=== PATIENT | female | born 1995 | race Caucasian/White ===

== ENCOUNTER 2022-02-01 16:29 | Emergency (ER) | payer OTHER, MEDICAID, SELFPAY ==
[2022-02-01 16:55] VITALS: BP 148/74; PULSE 88; RESP 16; TEMP 36.9; O2SAT 98; BMI 26.9
--- NOTE | 2022-02-01 19:51 | ED.ABDPAIN ---
HPI - Abdominal Pain General Chief Complaint: Abdominal Pain Stated Complaint: Can't go to restroom, pain arms/legs/body 2weeks Time Seen by Provider: 02/01/22 17:27 Source: patient Mode of arrival: Ambulatory History of Present Illness HPI narrative: Patient is a 26-year-old male to female transitioning on hormone replacement, Angel jordna, anxiety presents today with multiple complaints. She states that she is having ongoing abdominal discomfort. She has not had a bowel movement in a while. She can still tell when she has to urinate. She denies any flank pain. No nausea or vomiting. No fevers or chills. She has had intermittent chest discomfort as well. In fact she is at the [facility] in 01/21/2022 where she was worked up blood work EKG she had some left-sided weakness as well history is workup for a TIA. EKG blood work head CT were negative. He continues to have this chest discomfort today she has no shortness of breath. Weakness seems to have resolved. According to you do have records she had heart rates in the 170s she has a normal heart rate and blood pressure here. Related Data Allergies Allergy/AdvReac Type Severity Reaction Status Date / Time methocarbamol Allergy Verified 02/01/22 17:03 Review of Systems Review of Systems Narrative: GENERAL: Denies chills, fatigue, malaise, fever, sweats, travel HEENT: Denies sinus pain, ear pain, sore throat, difficulty swallowing, neck pain RESPIRATORY: Denies dyspnea, cough, wheezing, hemoptysis, sputum. CARDIOVASCULAR: Denies chest pain, palpitations, orthopnea, edema GASTROINTESTINAL: See HPI : Denies dysuria, frequency, incontinence, hematuria, urinary retention, flank pain. MUSCULOSKELETAL: Denies weakness, joint pain, or bony pain SKIN: No rash, no erythema, no pruritus NEUROLOGIC: Denies weakness, dizziness, headache, numbness, change in speech, confusion PSYCHIATRIC: No concerning psychosocial issues. 12 point review of systems is negative except for those stated above and HPI Patient History Social History Smoking Status: Current every day smoker Smoking Status: Current every day smoker tobacco type: vaping Substance Use Type: does not use Exam Initial Vital Signs Initial Vital Signs: Vital Signs Temperature 98.4 F 02/01/22 16:55 Pulse Rate 88 02/01/22 16:55 Respiratory Rate 16 02/01/22 16:55 Blood Pressure 148/74 H 02/01/22 16:55 Pulse Oximetry 98 02/01/22 16:55 GENERAL: Well-appearing, well-nourished and in no acute distress. HEENT: Head atraumatic,EOMI, pupils reactive, face symmetric, moist mucous membranes CARDIOVASCULAR: Regular rate and rhythm without murmurs, rubs or gallops. RESPIRATORY: Breath sounds equal bilaterally, no wheezes rales or rhonchi. ABDOMEN: Soft, mild diffuse abdominal discomfort no guarding rebound : No CVA tenderness EXTREMITIES: Normal range of motion, no clubbing or edema. Neurovascularly intact NEUROLOGICAL: Alert and oriented x4.Normal gait and speech. Moving all extremities SKIN: Warm, dry, no laceration, no petechiae, no rashes or lesions. Course Orders Ordered: ED Orders 02/01/22 19:52 CT abdomen pelvis w con Stat EKG-12 Lead Stat 02/01/22 20:05 Complete Blood Count AUTO DIFF Stat Comprehensive Metabolic Panel Stat D Dimer Stat Lipase Stat Troponin & CK Cardiac Panel Stat Vital Signs Vital signs: Vital Signs - 8 hr 02/01/22 21:35 Pulse Rate 87 Respiratory Rate 18 Blood Pressure 124/70 Pulse Oximetry 99 MDM - Abdominal Pain Lab Data Result diagrams: 02/01/22 20:05 02/01/22 20:05 Labs: Lab Results 02/01/22 02/01/22 02/01/22 Range/Units 20:05 20:05 20:05 WBC 10.4 (4.5-11.0) X10^3/uL RBC 4.74 (4.0-5.2) X10^6/uL Hgb 14.9 (12.0-16.0) g/dL Hct 43.6 (36-46) % MCV 91.9 (80-100) fL MCH 31.3 (26-34) PG MCHC 34.1 (30-36) % RDW 12.9 (11.6-14.8) % Plt Count 289 (150-400) X10^3/uL Neut % (Auto) 68.1 (50-75) % Lymph % (Auto) 25.3 (25-40) % [place] % (Auto) 5.1 (3-14) % Eos % (Auto) 0.7 L (2-4) % Baso % (Auto) 0.8 (0-2) % Neut # (Auto) 7100 H (8694-1474) /uL Lymph # (Auto) 2600 (0519-3316) /uL [place] # (Auto) 500 (0-900) /uL Eos # (Auto) 100 (0-450) /uL Baso # (Auto) 100 (0-100) /uL D-Dimer < 200 (<230) ng/mL Sodium 144 (137-145) mmol/L Potassium 4.0 (3.4-5.1) mmol/L Chloride 105 (98-107) mmol/L Carbon Dioxide 27 (22-32) mmol/L BUN 15 (7-17) mg/dL Creatinine 0.92 (0.52-1.04) mg/dL Estimated GFR > 60 (>60) mL/min BUN/Creatinine Ratio 16.3 (6-22) Glucose 102 H (70-100) mg/dL Calcium 9.3 (8.4-10.2) mg/dL Total Bilirubin 0.5 (0.2-1.3) mg/dL AST 24 (14-36) IU/L ALT 20 (<35) IU/L Alkaline Phosphatase 59 (38-126) U/L Total Creatine Kinase (30-135) U/L CK-MB (CK-2) CK-MB (CK-2) Rel Index Troponin I (0.01-0.034) ng/mL Total Protein 8.6 H (6.3-8.2) g/dL Albumin 4.9 (3.5-5.0) g/dL Globulin 3.7 (1.7-4.1) g/dL Albumin/Globulin Ratio 1.3 (1.0-2.8) Lipase 66 (23-300) U/L 02/01/22 Range/Units 20:05 WBC (4.5-11.0) X10^3/uL RBC (4.0-5.2) X10^6/uL Hgb (12.0-16.0) g/dL Hct (36-46) % MCV (80-100) fL MCH (26-34) PG MCHC (30-36) % RDW (11.6-14.8) % Plt Count (150-400) X10^3/uL Neut % (Auto) (50-75) % Lymph % (Auto) (25-40) % [place] % (Auto) (3-14) % Eos % (Auto) (2-4) % Baso % (Auto) (0-2) % Neut # (Auto) (8430-4763) /uL Lymph # (Auto) (2648-8892) /uL [place] # (Auto) (0-900) /uL Eos # (Auto) (0-450) /uL Baso # (Auto) (0-100) /uL D-Dimer (<230) ng/mL Sodium (137-145) mmol/L Potassium (3.4-5.1) mmol/L Chloride (98-107) mmol/L Carbon Dioxide (22-32) mmol/L BUN (7-17) mg/dL Creatinine (0.52-1.04) mg/dL Estimated GFR (>60) mL/min BUN/Creatinine Ratio (6-22) Glucose (70-100) mg/dL Calcium (8.4-10.2) mg/dL Total Bilirubin (0.2-1.3) mg/dL AST (14-36) IU/L ALT (<35) IU/L Alkaline Phosphatase (38-126) U/L Total Creatine Kinase 37 (30-135) U/L CK-MB (CK-2) TNP CK-MB (CK-2) Rel Index TNP Troponin I < 0.012 (0.01-0.034) ng/mL Total Protein (6.3-8.2) g/dL Albumin (3.5-5.0) g/dL Globulin (1.7-4.1) g/dL Albumin/Globulin Ratio (1.0-2.8) Lipase (23-300) U/L Imaging Data CT scan - abdomen/pelvis: Radiologist's Impression: tient: Michelle Kolb MR#: [id number] : 1995 Acct:[id number] Age/Sex: 26 / F Date of Service: 02/01/22 Loc: ED Accession Number: [id number] ?? Procedure: CT abdomen pelvis w con Ordering Provider: Syeda Carrillo D.O. PROCEDURE:? CT ABDOMEN PELVIS W CON ? INDICATIONS:? ab pain all over ? TECHNIQUE:? After the administration of intravenous contrast, axial sections acquired from the lung bases to the pubic symphysis.? Coronal and sagittal reformats were performed.? For radiation dose reduction, the following was used:? automated exposure control, adjustment of mA and/or kV according to patient size.? ? COMPARISON:? None. ? FINDINGS:? Image quality:? Excellent.? ? Lung bases:? Unremarkable. Heart:? No significant findings. ? ABDOMEN: Liver:? No masses Gallbladder:? Normal wall thickness. Biliary ducts:? Nondilated. Pancreas:? Normal. Spleen:? Normal size. Adrenal Glands:? No nodules. Kidneys and Ureters:? Normal enhancement.? No hydronephrosis or hydroureter.? No calcifications. ? Stomach and Bowel:? Stomach, small bowel loops, and colon are unremarkable.? Normal appendix. Peritoneum:? No abnormal intraperitoneal fluid.? No free air.? ? Ventral Wall: ? No hernias.? Abdominal Nodes:? Small mesenteric lymph nodes present. Vessels:? Aorta and inferior vena cava are normal in size.? ? PELVIS: Pelvic Organs:? Both testicles in the inguinal regions.? Normal size prostate gland. Bladder:? Normal wall thickness. Pelvic Nodes: No enlarged lymph nodes.? Miscellaneous: No hernias are seen. ? ? ? Bones:? Unremarkable.? IMPRESSION:? ? 1. No CT evidence of acute process.? ? ? Dictated by: Kyra Meng M.D. on 02/01/2022 at 20:49 ? ? ECG Data Interpretation: Sinus rhythm rate 81 MA interval 146 QRS [address] changes no T-wave inversions MDM Narrative Medical decision making narrative: The patient has right knee of odd complaints. She was just seen a couple weeks ago for chest pain palpitations and tachycardia. She continues to have these type symptoms. I added a D-dimer today which fortunately is negative. Abdominal CT is negative blood work is overall reassuring. This time I have no explanation for bag abdominal pain. I have explained this to her recommend outpatient follow-up. Discharge Plan Departure Patient Disposition: Home Clinical Impression: Abdominal pain Instructions: DI for Abdominal Pain-Adult Activity Restrictions/Additional Instructions: *You have been diagnosed with abdominal pain *What to do: At this time blood work and CT scan do not show any abnormality. I am sorry that you are still uncomfortable. We checked your heart today as well which is also okay. *Continue to take medications as directed *Follow up with your primary care provider in 2-3 days or call [phone] *Return to ER if you should have increasing pain chest pain passing out vomiting fever or any new, worsening or concerning symptoms Referrals: Jose Moore MD [Primary Care Provider] -
--- NOTE | 2022-02-01 19:52 | DI.CT.S_ITS ---
PROCEDURE: CT ABDOMEN PELVIS W CON INDICATIONS: ab pain all over TECHNIQUE: After the administration of intravenous contrast, axial sections acquired from the lung bases to the pubic symphysis. Coronal and sagittal reformats were performed. For radiation dose reduction, the following was used: automated exposure control, adjustment of mA and/or kV according to patient size. COMPARISON: None. FINDINGS: Image quality: Excellent. Lung bases: Unremarkable. Heart: No significant findings. ABDOMEN: Liver: No masses Gallbladder: Normal wall thickness. Biliary ducts: Nondilated. Pancreas: Normal. Spleen: Normal size. Adrenal Glands: No nodules. Kidneys and Ureters: Normal enhancement. No hydronephrosis or hydroureter. No calcifications. Stomach and Bowel: Stomach, small bowel loops, and colon are unremarkable. Normal appendix. Peritoneum: No abnormal intraperitoneal fluid. No free air. Ventral Wall: No hernias. Abdominal Nodes: Small mesenteric lymph nodes present. Vessels: Aorta and inferior vena cava are normal in size. PELVIS: Pelvic Organs: Both testicles in the inguinal regions. Normal size prostate gland. Bladder: Normal wall thickness. Pelvic Nodes: No enlarged lymph nodes. Miscellaneous: No hernias are seen. Bones: Unremarkable. IMPRESSION: 1. No CT evidence of acute process. Dictated by: Kyra Meng M.D. on 02/01/2022 at 20:49 Approved by: Kyra Meng M.D. on 02/01/2022 at 20:54
[2022-02-01 20:23] LABS: Add Manual Diff / Slide Review NO; Basophils Absolute Auto 100 /uL (0-100); Basophils Percent Auto 0.8 % (0-2); Eosinophils Absolute Auto 100 /uL (0-450); Eosinophils Percent Auto 0.7 % (2-4); Hematocrit 43.6 % (36-46); Hemoglobin 14.9 g/dL (12.0-16.0); Lymphocytes Absolute Auto 2600 /uL (1100-4500); Lymphocytes Percent Auto 25.3 % (25-40); Mean Corpuscular HGB Conc 34.1 % (30-36); Mean Corpuscular Hemoglobin 31.3 PG (26-34); Mean Corpuscular Volume 91.9 fL (80-100); Monocytes Absolute Auto 500 /uL (0-900); Monocytes Percent Auto 5.1 % (3-14); Neutrophils Absolute Auto 7100 /uL (1500-7000); Neutrophils Percent Auto 68.1 % (50-75); Platelet Count 289 X10^3/uL (150-400); Red Blood Cell Count 4.74 X10^6/uL (4.0-5.2); Red Cell Distribution Width 12.9 % (11.6-14.8); White Blood Cell Count 10.4 X10^3/uL (4.5-11.0)
[2022-02-01 20:33] LABS: Creatine Kinase 37 U/L (30-135)
[2022-02-01 20:34] LABS: Alanine Aminotransferase 20 IU/L (<35); Albumin 4.9 g/dL (3.5-5.0); Albumin Globulin Ratio 1.3 (1.0-2.8); Alkaline Phosphatase 59 U/L (38-126); Aspartate Aminotransferase 24 IU/L (14-36); BUN Creatinine Ratio 16.3 (6-22); Bilirubin Total 0.5 mg/dL (0.2-1.3); Blood Urea Nitrogen 15 mg/dL (7-17); Calcium 9.3 mg/dL (8.4-10.2); Carbon Dioxide 27 mmol/L (22-32); Chloride 105 mmol/L (98-107); Estimated Glomerular Filt Rate > 60 mL/min (>60); Globulin 3.7 g/dL (1.7-4.1); Glucose 102 mg/dL (70-100); HEMOLYSIS < 15 (0-50); Lipase 66 U/L (23-300); Sodium 144 mmol/L (137-145); Total Protein 8.6 g/dL (6.3-8.2)
[2022-02-01 20:42] LABS: D Dimer < 200 ng/mL (<230)
[2022-02-01 20:47] LABS: Troponin I < 0.012 ng/mL (0.01-0.034)
[2022-02-01 21:35] VITALS: BP 124/70; PULSE 87; RESP 18; O2SAT 99
== END 2022-02-01 22:25 | disposition home or self-care (01) ==
PROVIDERS: Emergency Provider Emergency Medicine; PCP Internal Medicine
DX: R10.9 Unspecified abdominal pain (principal); R07.89 Other chest pain
CPT/HCPCS: 74177; 80053; 82550; 83690; 84484; 85025; 85379; 93005; 99283; 99284; Q9967

== ENCOUNTER 2022-02-24 12:48 | Emergency (ER) | payer OTHER, MEDICAID, SELFPAY ==
[2022-02-24 12:55] VITALS: BP 135/78; PULSE 97; RESP 16; TEMP 36.6; O2SAT 98; BMI 27.1
--- NOTE | 2022-02-24 12:58 | DI.RAD.S_ITS ---
PROCEDURE: XR CHEST 2V INDICATIONS: pain with deep breath, SOB. Hx asthma TECHNIQUE: 2 views of the chest were acquired. COMPARISON: None. FINDINGS: Surgical changes and devices: None. Lungs and pleura: Lungs are clear. No pleural effusions or pneumothorax. Mediastinum: Mediastinal contours are normal. Heart size is normal. Bones and chest wall: No suspicious bony abnormalities. Soft tissues appear unremarkable. IMPRESSION: No acute cardiopulmonary findings. Dictated by: Jihan Shirley M.D. on 02/24/2022 at 13:24 Approved by: Jihan Shirley M.D. on 02/24/2022 at 13:25
--- NOTE | 2022-02-24 13:26 | ED_ITS ---
HPI - SOB/Dyspnea <Clive Iraheta PA-C - Last Filed: 02/24/22 17:14> General Chief Complaint: Upper Respiratory Symptoms Stated Complaint: trouble breathing, pain on rt side, behind rt lung Time Seen by Provider: 02/24/22 12:50 Mode of arrival: Ambulatory History of Present Illness HPI Narrative: This is a 26-year-old female presents to the emergency department due to 3 days of shortness of breath. She has used her albuterol inhaler for her chronic asthma without significant relief. She also reports pain in the right back, ?underneath the scapula?. Denies any trauma to the area. Denies any fevers, nausea, vomiting, diarrhea, URI symptoms, or any other concerning signs or symptoms. Denies any chest pain. Related Data Previous Rx's Medication Instructions Recorded prednisone 20 mg tablet 20 mg PO BID 7 Days #14 tab 02/24/22 Allergies Allergy/AdvReac Type Severity Reaction Status Date / Time methocarbamol Allergy Verified 02/24/22 12:57 Review of Systems <MIESHA Milan Last Filed: 02/24/22 17:14> Review of Systems Narrative: Positive for shortness of breath, right back pain Negative for fevers, nausea, vomiting, diarrhea, chest pain, URI symptoms Patient History <MIESHA Milan Last Filed: 02/24/22 17:14> Social History Smoking Status: Current every day smoker Smoking Status: Current every day smoker tobacco type: vaping Substance Use Type: does not use Exam <MIESHA Milan Last Filed: 02/24/22 17:14> Narrative Exam Narrative: GENERAL: Well-developed patient, in mild distress. HEAD: Atraumatic. Normocephalic. EYES: Pupils equal round and reactive. Extraocular motions intact. No scleral icterus. No injection or drainage. ENT: Nose without bleeding, purulent drainage. Throat without erythema, tonsillar hypertrophy or exudate. Airway patent. NECK: Trachea midline. Non tender CARDIOVASCULAR: Regular rate and rhythm without murmurs, gallops, or rubs. RESPIRATORY: Clear to auscultation. Breath sounds equal bilaterally. No wheezes, rales, or rhonchi. GASTROINTESTINAL: Abdomen soft, non-tender, nondistended. EXTREMITIES: No edema or joint tenderness. BACK: Mild tenderness palpation to the right scapular area NEURO: AOx3. SKIN: No rash or erythema of visible areas Initial Vital Signs Initial Vital Signs: Vital Signs Temperature 98 F 02/24/22 12:55 Pulse Rate 97 H 02/24/22 12:55 Respiratory Rate 16 02/24/22 12:55 Blood Pressure 135/78 02/24/22 12:55 Pulse Oximetry 98 02/24/22 12:55 <DO Carmela Ware Last Filed: 02/25/22 08:47> Initial Vital Signs Initial Vital Signs: Vital Signs Temperature 98 F 02/24/22 12:55 Pulse Rate 97 H 02/24/22 12:55 Respiratory Rate 16 02/24/22 12:55 Blood Pressure 135/78 02/24/22 12:55 Pulse Oximetry 98 02/24/22 12:55 Course <Clive Iraheta PA-C - Last Filed: 02/24/22 17:14> Orders Ordered: ED Orders 02/24/22 12:58 XR chest 2V Stat EKG-12 Lead Stat 02/24/22 13:07 D Dimer Stat 02/24/22 14:59 Complete Blood Count AUTO DIFF Stat Comprehensive Metabolic Panel Stat Troponin I Stat Vital Signs Vital signs: Vital Signs - 8 hr 02/24/22 12:55 Temperature 98 F Pulse Rate 97 H Respiratory Rate 16 Blood Pressure 135/78 Pulse Oximetry 98 <DO Carmela Ware Last Filed: 02/25/22 08:47> Orders Ordered: ED Orders 02/24/22 12:58 XR chest 2V Stat EKG-12 Lead Stat 02/24/22 13:07 D Dimer Stat 02/24/22 14:59 Complete Blood Count AUTO DIFF Stat Comprehensive Metabolic Panel Stat Troponin I Stat Vital Signs Vital signs: Vital Signs - 8 hr 02/24/22 12:55 Temperature 98 F Pulse Rate 97 H Respiratory Rate 16 Blood Pressure 135/78 Pulse Oximetry 98 MDM - SOB/Dyspnea <MIESHA Milan Last Filed: 02/24/22 17:14> Lab Data Result diagrams: 02/24/22 14:59 02/24/22 14:59 Labs: Lab Results 02/24/22 02/24/22 02/24/22 Range/Units 13:07 14:59 14:59 WBC 6.9 (4.5-11.0) X10^3/uL RBC 4.65 (4.0-5.2) X10^6/uL Hgb 14.8 (12.0-16.0) g/dL Hct 42.1 (36-46) % MCV 90.7 (80-100) fL MCH 31.8 (26-34) PG MCHC 35.1 (30-36) % RDW 12.9 (11.6-14.8) % Plt Count 217 (150-400) X10^3/uL Neut % (Auto) 63.5 (50-75) % Lymph % (Auto) 29.0 (25-40) % [place] % (Auto) 5.5 (3-14) % Eos % (Auto) 1.1 L (2-4) % Baso % (Auto) 0.9 (0-2) % Neut # (Auto) 4400 (4396-1190) /uL Lymph # (Auto) 2000 (9072-2676) /uL [place] # (Auto) 400 (0-900) /uL Eos # (Auto) 100 (0-450) /uL Baso # (Auto) 100 (0-100) /uL D-Dimer < 200 (<230) ng/mL Sodium 141 (137-145) mmol/L Potassium 3.8 (3.4-5.1) mmol/L Chloride 105 (98-107) mmol/L Carbon Dioxide 26 (22-32) mmol/L BUN 14 (7-17) mg/dL Creatinine 0.83 (0.52-1.04) mg/dL Estimated GFR > 60 (>60) mL/min BUN/Creatinine Ratio 16.9 (6-22) Glucose 95 (70-100) mg/dL Calcium 8.8 (8.4-10.2) mg/dL Total Bilirubin 0.4 (0.2-1.3) mg/dL AST 31 (14-36) IU/L ALT 55 H (<35) IU/L Alkaline Phosphatase 48 (38-126) U/L Troponin I (0.01-0.034) ng/mL Total Protein 8.0 (6.3-8.2) g/dL Albumin 4.7 (3.5-5.0) g/dL Globulin 3.3 (1.7-4.1) g/dL Albumin/Globulin Ratio 1.4 (1.0-2.8) // Range/Units 14:59 WBC (4.5-11.0) X10^3/uL RBC (4.0-5.2) X10^6/uL Hgb (12.0-16.0) g/dL Hct (36-46) % MCV (80-100) fL MCH (26-34) PG MCHC (30-36) % RDW (11.6-14.8) % Plt Count (150-400) X10^3/uL Neut % (Auto) (50-75) % Lymph % (Auto) (25-40) % [place] % (Auto) (3-14) % Eos % (Auto) (2-4) % Baso % (Auto) (0-2) % Neut # (Auto) (0559-7295) /uL Lymph # (Auto) (5173-2007) /uL [place] # (Auto) (0-900) /uL Eos # (Auto) (0-450) /uL Baso # (Auto) (0-100) /uL D-Dimer (<230) ng/mL Sodium (137-145) mmol/L Potassium (3.4-5.1) mmol/L Chloride (98-107) mmol/L Carbon Dioxide (22-32) mmol/L BUN (7-17) mg/dL Creatinine (0.52-1.04) mg/dL Estimated GFR (>60) mL/min BUN/Creatinine Ratio (6-22) Glucose (70-100) mg/dL Calcium (8.4-10.2) mg/dL Total Bilirubin (0.2-1.3) mg/dL AST (14-36) IU/L ALT (<35) IU/L Alkaline Phosphatase (38-126) U/L Troponin I < 0.012 (0.01-0.034) ng/mL Total Protein (6.3-8.2) g/dL Albumin (3.5-5.0) g/dL Globulin (1.7-4.1) g/dL Albumin/Globulin Ratio (1.0-2.8) Imaging Data Chest x-ray: Radiologist's Impression: [address] [address] XRay Report Signed Patient: Michelle Kolb MR#: [id number] : 1995 Acct:[id number] Age/Sex: 26 / F Date of Service: 02/24/22 Loc: ED Accession Number: [id number] ?? Procedure: XR chest 2V Ordering Provider: Syeda Carrillo D.O. PROCEDURE:? XR CHEST 2V ? INDICATIONS:? pain with deep breath, SOB. Hx asthma ? TECHNIQUE:? 2 views of the chest were acquired.? ? COMPARISON:? None. ? FINDINGS:? ? Surgical changes and devices:? None.? ? Lungs and pleura:? Lungs are clear.? No pleural effusions or pneumothorax.? ? Mediastinum:? Mediastinal contours are normal.? Heart size is normal.? ? Bones and chest wall:? No suspicious bony abnormalities.? Soft tissues appear unremarkable.? ? IMPRESSION:? No acute cardiopulmonary findings. ? ? Dictated by: Jihan Shirley M.D. on 02/24/2022 at 13:24 ? ? Approved by: Jihan Shirley M.D. on 02/24/2022 at 13:25 ? ECG Data Interpretation: EKG is normal sinus rhythm rate 78 and free of any signs of ischemia or ectopy. No ST segmental elevation or depression. No T wave inversions MDM Narrative Medical decision making narrative: 26-year-old female presents to the emergency department due to acute no shortness of breath over last 3 days. Suspect asthma exacerbation as she does report a history of asthma. Chest x-ray shows no evidence of any him pneumothorax, pneumonia, or other abnormality. EKG showed no evidence of ACS. D-dimer ordered as patient does have a history of hormone replacement therapy. D-dimer negative and low suspicion for PE at this time. CBC, CMP, troponin, all within normal limits as well. Discussed options for possible breathing treatment here in the emergency department although patient declined as she states she needs to get home to her grandmother's to give her medication. Short steroid burst will be prescribed to treat the suspected asthma exacerbation. <Syeda Carrillo DO - Last Filed: 02/25/22 08:47> Lab Data Labs: Lab Results 02/24/22 02/24/22 02/24/22 Range/Units 13:07 14:59 14:59 WBC 6.9 (4.5-11.0) X10^3/uL RBC 4.65 (4.0-5.2) X10^6/uL Hgb 14.8 (12.0-16.0) g/dL Hct 42.1 (36-46) % MCV 90.7 (80-100) fL MCH 31.8 (26-34) PG MCHC 35.1 (30-36) % RDW 12.9 (11.6-14.8) % Plt Count 217 (150-400) X10^3/uL Neut % (Auto) 63.5 (50-75) % Lymph % (Auto) 29.0 (25-40) % [place] % (Auto) 5.5 (3-14) % Eos % (Auto) 1.1 L (2-4) % Baso % (Auto) 0.9 (0-2) % Neut # (Auto) 4400 (3828-5953) /uL Lymph # (Auto) 2000 (6100-3742) /uL [place] # (Auto) 400 (0-900) /uL Eos # (Auto) 100 (0-450) /uL Baso # (Auto) 100 (0-100) /uL D-Dimer < 200 (<230) ng/mL Sodium 141 (137-145) mmol/L Potassium 3.8 (3.4-5.1) mmol/L Chloride 105 (98-107) mmol/L Carbon Dioxide 26 (22-32) mmol/L BUN 14 (7-17) mg/dL Creatinine 0.83 (0.52-1.04) mg/dL Estimated GFR > 60 (>60) mL/min BUN/Creatinine Ratio 16.9 (6-22) Glucose 95 (70-100) mg/dL Calcium 8.8 (8.4-10.2) mg/dL Total Bilirubin 0.4 (0.2-1.3) mg/dL AST 31 (14-36) IU/L ALT 55 H (<35) IU/L Alkaline Phosphatase 48 (38-126) U/L Troponin I (0.01-0.034) ng/mL Total Protein 8.0 (6.3-8.2) g/dL Albumin 4.7 (3.5-5.0) g/dL Globulin 3.3 (1.7-4.1) g/dL Albumin/Globulin Ratio 1.4 (1.0-2.8) / Range/Units 14:59 WBC (4.5-11.0) X10^3/uL RBC (4.0-5.2) X10^6/uL Hgb (12.0-16.0) g/dL Hct (36-46) % MCV (80-100) fL MCH (26-34) PG MCHC (30-36) % RDW (11.6-14.8) % Plt Count (150-400) X10^3/uL Neut % (Auto) (50-75) % Lymph % (Auto) (25-40) % [place] % (Auto) (3-14) % Eos % (Auto) (2-4) % Baso % (Auto) (0-2) % Neut # (Auto) (1431-4945) /uL Lymph # (Auto) (8274-2569) /uL Marion # (Auto) (0-900) /uL Eos # (Auto) (0-450) /uL Baso # (Auto) (0-100) /uL D-Dimer (<230) ng/mL Sodium (137-145) mmol/L Potassium (3.4-5.1) mmol/L Chloride (98-107) mmol/L Carbon Dioxide (22-32) mmol/L BUN (7-17) mg/dL Creatinine (0.52-1.04) mg/dL Estimated GFR (>60) mL/min BUN/Creatinine Ratio (6-22) Glucose (70-100) mg/dL Calcium (8.4-10.2) mg/dL Total Bilirubin (0.2-1.3) mg/dL AST (14-36) IU/L ALT (<35) IU/L Alkaline Phosphatase (38-126) U/L Troponin I < 0.012 (0.01-0.034) ng/mL Total Protein (6.3-8.2) g/dL Albumin (3.5-5.0) g/dL Globulin (1.7-4.1) g/dL Albumin/Globulin Ratio (1.0-2.8) ECG Data Interpretation: EKG is normal sinus rhythm rate 78 and free of any signs of ischemia or ectopy. No ST segmental elevation or depression. No T wave inversions Rhythm rate 78 VT interval 148 QRS [address] changes no T-wave inversions similar to previous EKG Discharge Plan Departure Patient Disposition: Home Clinical Impression: Asthma exacerbation Instructions: DI for Asthma -- Adult Activity Restrictions/Additional Instructions: Thank you for coming to the [facility] Emergency Department today. Suspect your having a kind of asthma exacerbation today. Your chest x-ray shows no sheri dence of any kind of bony fracture, pneumonia, ?popped lung? called a pneumothorax, or any other lung abnormality. Your lab work was also unremarkable. We did a test that checks for blood clots in her lungs as well as heart attacks and both of these were normal as well. He EKG showed no evidence of heart abnormality. Please take the steroids as prescribed and continue using your albuterol inhaler. I hope you feel better soon. Prescriptions: New prednisone 20 mg tablet 20 mg PO BID 7 Days Qty: 14 0RF Referrals: Jose Moore MD [Primary Care Provider] - <Syeda Carrillo DO - Last Filed: 02/25/22 08:47> Cosign ED Attending Cosblancheature Attestation: I was immediately available in the department for consultation. Documentation has been reviewed. I agree with assessment and plan.
[2022-02-24 15:07] LABS: Add Manual Diff / Slide Review NO; Basophils Absolute Auto 100 /uL (0-100); Basophils Percent Auto 0.9 % (0-2); Eosinophils Absolute Auto 100 /uL (0-450); Eosinophils Percent Auto 1.1 % (2-4); Hematocrit 42.1 % (36-46); Hemoglobin 14.8 g/dL (12.0-16.0); Lymphocytes Absolute Auto 2000 /uL (1100-4500); Mean Corpuscular HGB Conc 35.1 % (30-36); Mean Corpuscular Hemoglobin 31.8 PG (26-34); Mean Corpuscular Volume 90.7 fL (80-100); Monocytes Absolute Auto 400 /uL (0-900); Monocytes Percent Auto 5.5 % (3-14); Neutrophils Absolute Auto 4400 /uL (1500-7000); Neutrophils Percent Auto 63.5 % (50-75); Platelet Count 217 X10^3/uL (150-400); Red Blood Cell Count 4.65 X10^6/uL (4.0-5.2); Red Cell Distribution Width 12.9 % (11.6-14.8); White Blood Cell Count 6.9 X10^3/uL (4.5-11.0)
[2022-02-24 15:23] LABS: D Dimer < 200 ng/mL (<230)
[2022-02-24 16:03] LABS: Alanine Aminotransferase 55 IU/L (<35); Albumin 4.7 g/dL (3.5-5.0); Albumin Globulin Ratio 1.4 (1.0-2.8); Alkaline Phosphatase 48 U/L (38-126); Aspartate Aminotransferase 31 IU/L (14-36); BUN Creatinine Ratio 16.9 (6-22); Bilirubin Total 0.4 mg/dL (0.2-1.3); Blood Urea Nitrogen 14 mg/dL (7-17); Calcium 8.8 mg/dL (8.4-10.2); Carbon Dioxide 26 mmol/L (22-32); Chloride 105 mmol/L (98-107); Estimated Glomerular Filt Rate > 60 mL/min (>60); Globulin 3.3 g/dL (1.7-4.1); Glucose 95 mg/dL (70-100); HEMOLYSIS < 15 (0-50); Potassium 3.8 mmol/L (3.4-5.1); Sodium 141 mmol/L (137-145)
[2022-02-24 16:14] LABS: Troponin I < 0.012 ng/mL (0.01-0.034)
[2022-02-24 17:22] VITALS: BP 128/81; PULSE 78; RESP 18; O2SAT 98
== END 2022-02-24 17:30 | disposition home or self-care (01) ==
PROVIDERS: Emergency Provider Physician Assistant Medical; PCP Internal Medicine
DX: J45.901 Unspecified asthma with (acute) exacerbation (principal); R07.9 Chest pain, unspecified
CPT/HCPCS: 36415; 71046; 80053; 84484; 85025; 85379; 93005; 93010; 99283